=== PATIENT | female | born 2000 | race Hispanic/Latino ===

== ENCOUNTER 2024-07-05 19:00 | Emergency (ER) | payer OTHER ==
[~2024-07-05] VITALS: Ht 154.9 cm; Wt 76.2 kg
[2024-07-05 20:00] VITALS: PULSE 90; RESP 18; TEMP 97.9
[2024-07-05] MEDS ORDERED: SODIUM CHLORIDE 0.9% 1000ML 1,000 ML IV STA (23:10)
[2024-07-05] MEDS: ACETAMINOPHEN 325 MG TAB PO ONE (23:18)
[2024-07-06] MEDS ORDERED: ONDANSETRON ODT4 MG PO (00:19)
[2024-07-06 00:30] VITALS: BP 139/98; PULSE 88; RESP 18; TEMP 98; O2SAT 99
== END 2024-07-06 00:30 | disposition home or self-care (01) ==
LOC: FSED 19:09
DX: R50.9 Fever, unspecified (principal); J10.1 Influenza due to other identified influenza virus with other respiratory manifestations; B34.9 Viral infection, unspecified; R51.9 Headache, unspecified; N31.9 Neuromuscular dysfunction of bladder, unspecified; I12.9 Hypertensive chronic kidney disease with stage 1 through stage 4 chronic kidney disease, or unspecified chronic kidney disease; N18.30 Chronic kidney disease, stage 3 unspecified; F41.9 Anxiety disorder, unspecified; Q05.4 Unspecified spina bifida with hydrocephalus; Z98.2 Presence of cerebrospinal fluid drainage device
CPT/HCPCS: 70450; 75809; 80053; 81003; 81025; 82948; 83518; 85025; 87400; 99283; J7030